=== PATIENT | male | born 1995 | race Two or more races ===

== ENCOUNTER 2018-06-01 08:56 | Emergency (ER) | payer MEDICAID ==
[~2018-06-01 08:56] MED LIST: METO-734 PO; OMEP-125 PO; ONDA4TAB PO; ONDA4TAB97 PO; OXYC-865 PO; PROM-110 PO; SUCR1TAB85 PO
[2018-06-01] MEDS ORDERED: NS(*) 0.9% 1000 ML BAG 1,000 ML IV ONE (09:01)
--- NOTE | 2018-06-01 09:01 | ER Report ---
History and Physical Time Seen By MD: 09:00 HPI/ROS CHIEF COMPLAINT: Vomiting HISTORY OF PRESENT ILLNESS: Patient is a 22-year-old male here with complaints of vomiting intermittently since Sunday. Patient was reportedly getting better over the past 2 days however declined today and reports several episodes of emesis this morning with nausea and cramping abdominal pain. Patient reports recent illness with possible sick contacts. Patient is afebrile, hemodynamically stable. He has been unable to tolerate oral intake. Last full meal was on Sunday. Denies chest pain, shortness breath, fevers or chills REVIEW OF SYSTEMS: Constitutional: No fever, no chills. Eyes: No discharge. ENT: No sore throat. Cardiovascular: No chest pain, no palpitations. Respiratory: No cough, no shortness of breath. Gastrointestinal: + Cramping abdominal pain, recurrent vomiting. Genitourinary: No hematuria. Musculoskeletal: No back pain. Skin: No rashes. Neurological: No headache. Allergies: Coded Allergies: No Known Drug Allergies (Unverified , 06/01/18) Home Meds Active Scripts Ondansetron (ZOFRAN ODT) 4 Mg Tab.rapdis, 4 MG PO Q6H Y for NAUSEA/VOMITING, # 20 TAB.JAKE 0 Refills Prov:MARIELA HOLGUIN DO 06/01/18 Sucralfate (CARAFATE) 1 Gm Tablet, 1 GM PO QID for 30 Days, #120 TAB 0 Refills Prov:WANDA WOODS MD 07/17/17 Discontinued Reported Medications Ondansetron (ZOFRAN ODT) 4 Mg Tab.rapdis, 4 MG PO Q12H, TAB.JAKE 07/11/17 Discontinued Scripts Ondansetron Hcl (ZOFRAN) 4 Mg Tablet, 4 MG PO Q6H Y for NAUSEA/VOMITING, #10 Prov:KAIT MORENO DO 08/30/17 Promethazine Hcl (PROMETHAZINE HCL) 25 Mg Tablet, 25 MG PO Q4H Y for NAUSEA/ VOMITING, #14 TAB Prov:KAIT MORENO DO 08/30/17 Oxycodone Hcl/Acetaminophen (PERCOCET 5-325 MG TABLET) 1 Each Tablet, 1 EACH PO Q4-6H Y for PAIN, #12 Prov:KAIT MORENO DO 08/30/17 Metoclopramide Hcl (REGLAN) 10 Mg Tablet, 10 MG PO Q6H Y for NAUSEA/VOMITING, # 30 TAB 0 Refills Prov:WANDA WOODS MD 07/17/17 Omeprazole (OMEPRAZOLE) 20 Mg Capsule.dr, 1 CAP PO BID for 30 Days, #60 CAP 0 Refills Prov:WANDA WOODS MD 07/17/17 Promethazine Hcl (PROMETHAZINE HCL) 25 Mg Tablet, 25 MG PO Q8H for Nausea, #30 TAB Prov:JOHNATHAN QUINONES 07/11/17 Hx Smoking: No Exposure to Second Hand Smoke?: No Hx Substance Use Disorder: No Hx Alcohol Use: No Constitutional Vital Sign - Last 24 Hours 06/01/18 06/01/18 06/01/18 06/01/18 08:57 09:02 09:07 09:22 Temp 98.5 Pulse 82 90 73 Resp 18 B/P (MAP) 148/100 148/100 (116) Pulse Ox 94 97 92 O2 Delivery Room Air 06/01/18 06/01/18 06/01/18 06/01/18 09:30 09:37 09:52 09:58 Pulse 80 64 B/P (MAP) 152/90 (110) Pulse Ox 87 91 O2 Flow Rate 1.0 Physical Exam General Appearance: The patient is alert, has no immediate need for airway protection and no signs of toxicity. No acute distress Eyes: Pupils equal and round no pallor or injection. ENT, Mouth: Mucous membranes are moist. Respiratory: There are no retractions, lungs are clear to auscultation. Cardiovascular: Regular rate and rhythm. Gastrointestinal: Abdomen is soft and mildly tender, no masses, bowel sounds normal. Neurological: No focal neurologic deficits Skin: Warm and dry, no rashes. Musculoskeletal: Neck is supple non tender. Extremities are nontender, nonswollen and have full range of motion. DIFFERENTIAL DIAGNOSIS: After history and physical exam differential diagnosis was considered for abdominal pain including but not limited to appendicitis, cholecystitis, gastritis and urinary tract infection. Medical Decision Making Data Points Result Diagram: 06/01/18 0900 06/01/18 09 Laboratory Hematology Test 06/01/18 09:00 Red Blood Count 6.40 M/uL (4.00-5.60) Mean Corpuscular Volume 80.7 fL (80.0-96.0) Mean Corpuscular Hemoglobin 29.1 pg (26.0-33.0) Mean Corpuscular Hemoglobin Concent 36.1 g/dL (32.0-36.0) Red Cell Distribution Width 13.2 % (11.5-14.5) Mean Platelet Volume 7.3 fL (7.2-11.1) Neutrophils (%) (Auto) 81.6 % (39.4-72.5) Lymphocytes (%) (Auto) 9.5 % (17.6-49.6) Monocytes (%) (Auto) 8.5 % (4.1-12.4) Eosinophils (%) (Auto) 0.0 % (0.4-6.7) Basophils (%) (Auto) 0.4 % (0.3-1.4) Nucleated RBC Relative Count (auto) 0.7 /100WBC Neutrophils # (Auto) 8.7 K/uL (2.0-7.4) Lymphocytes # (Auto) 1.0 K/uL (1.3-3.6) Monocytes # (Auto) 0.9 K/uL (0.3-1.0) Eosinophils # (Auto) 0.0 K/uL (0.0-0.5) Basophils # (Auto) 0.0 K/uL (0.0-0.1) Nucleated RBC Absolute Count (auto) 0.07 K/uL Sodium Level 142 mmol/L (137-145) Potassium Level 3.3 mmol/L (3.5-5.0) Chloride Level 102 mmol/L (98-107) Carbon Dioxide Level 21 mmol/L (22-30) Blood Urea Nitrogen 19 mg/dl (9-21) Creatinine 1.10 mg/dl (0.66-1.25) Glomerular Filtration Rate Calc > 60.0 Random Glucose 127 mg/dl (75-110) Calcium Level 10.7 mg/dl (8.4-10.2) Total Bilirubin 1.8 mg/dl (0.2-1.3) Aspartate Amino Transf (AST/SGOT) 30 U/L (0-35) Alanine Aminotransferase (ALT/SGPT) 37 U/L (0-56) Alkaline Phosphatase 69 U/L (0-126) Total Protein 8.5 g/dl (6.3-8.2) Albumin 5.2 g/dl (3.5-5.0) Lipase 72 U/L (23-300) Chemistry Test 06/01/18 09:00 White Blood Count 10.7 k/uL (4.5-11.0) Red Blood Count 6.40 M/uL (4.00-5.60) Hemoglobin 18.6 g/dL (14.0-18.0) Hematocrit 51.7 % (42.0-52.0) Mean Corpuscular Volume 80.7 fL (80.0-96.0) Mean Corpuscular Hemoglobin 29.1 pg (26.0-33.0) Mean Corpuscular Hemoglobin Concent 36.1 g/dL (32.0-36.0) Red Cell Distribution Width 13.2 % (11.5-14.5) Platelet Count 402 K/uL (150-450) Mean Platelet Volume 7.3 fL (7.2-11.1) Neutrophils (%) (Auto) 81.6 % (39.4-72.5) Lymphocytes (%) (Auto) 9.5 % (17.6-49.6) Monocytes (%) (Auto) 8.5 % (4.1-12.4) Eosinophils (%) (Auto) 0.0 % (0.4-6.7) Basophils (%) (Auto) 0.4 % (0.3-1.4) Nucleated RBC Relative Count (auto) 0.7 /100WBC Neutrophils # (Auto) 8.7 K/uL (2.0-7.4) Lymphocytes # (Auto) 1.0 K/uL (1.3-3.6) Monocytes # (Auto) 0.9 K/uL (0.3-1.0) Eosinophils # (Auto) 0.0 K/uL (0.0-0.5) Basophils # (Auto) 0.0 K/uL (0.0-0.1) Nucleated RBC Absolute Count (auto) 0.07 K/uL Glomerular Filtration Rate Calc > 60.0 Calcium Level 10.7 mg/dl (8.4-10.2) Total Bilirubin 1.8 mg/dl (0.2-1.3) Aspartate Amino Transf (AST/SGOT) 30 U/L (0-35) Alanine Aminotransferase (ALT/SGPT) 37 U/L (0-56) Alkaline Phosphatase 69 U/L (0-126) Total Protein 8.5 g/dl (6.3-8.2) Albumin 5.2 g/dl (3.5-5.0) Lipase 72 U/L (23-300) ED Course/Re-evaluation ED Course Patient is a 22-year-old male here with complaints of nausea, vomiting past several days, inability to tolerate oral intake. Patient is afebrile, hemodynamically stable throughout course. Patient examines as dehydrated and he was given fluid resuscitation and Zofran. Decision to Disposition Date: Jun 01, 2018 Decision to Disposition Time: 10:12 Depart Departure Latest Vital Signs Vital Signs Date Time Temp Pulse Resp B/P (MAP) Pulse Ox O2 Delivery O2 Flow Rate FiO2 06/01/18 09:58 1.0 06/01/18 09:52 64 91 06/01/18 09:30 152/90 (110) 06/01/18 08:57 98.5 18 Room Air Impression: Primary Impression: Nausea & vomiting Condition: Improved Disposition: HOME OR SELF-CARE New Scripts Ondansetron (ZOFRAN ODT) 4 Mg Tab.rapdis 4 MG PO Q6H Y for NAUSEA/VOMITING, #20 TAB.JAKE 0 Refills Prov: MARIELA HOLGUIN DO 06/01/18 Patient Instructions: Acute Nausea and Vomiting (ED) Additional Instructions: Please drink plenty of water. You may take 1 tablet of Zofran every 6-8 hours as needed for nausea and vomiting. Please return promptly if you develop inability to hold down fluids or food, fevers, worsening abdominal pain, decreased urine output. MARIELA HOLGUIN DO Jun 01, 2018 09:01
[2018-06-01] MEDS ORDERED: ATRO/SCOPOL/HYOSCY/PB 5 ML ELX PO ONE (09:05)
[2018-06-01] MEDS ORDERED: ONDANSETRON 4 MG/2 ML VIAL IVP ONE (09:05)
[2018-06-01] MEDS ORDERED: LIDOCAINE 2% VISC SLN 15ML UDC PO ONE (09:05)
[2018-06-01] MEDS ORDERED: MAG HYD/AL HYD/SIMETH 30ML UDC PO ONE (09:05)
[2018-06-01 09:21] LABS: PLATELET COUNT, AUTOMATED 402 K/uL (150-450)
[2018-06-01 10:00] VITALS: BP 138/92
[2018-06-01] MEDS ORDERED: ONDA4TAB PO (10:03)
== END 2018-06-01 10:17 | disposition home or self-care (01) ==
LOC: ER 09:04
DX: R11.2 Nausea with vomiting, unspecified (principal)
CPT/HCPCS: 83690; 85025; 96361; 96374; 99283; J2405; J7030; 82040; 82247; 82310; 82374; 82435; 82565; 82947; 84075; 84132; 84155; 84295; 84450; 84460; 84520